=== PATIENT | female | born 1940 | race Caucasian/White ===

== ENCOUNTER 2018-10-15 14:23 | Outpatient (CLI) | payer MEDICARE | END 2018-10-15 23:59 | disposition home or self-care (01) | LOC: CVU 14:23 | PROVIDERS: ATTEND Internal Medicine Cardiovascular Disease | DX: I08.8 Other rheumatic multiple valve diseases (principal); I10 Essential (primary) hypertension; J44.9 Chronic obstructive pulmonary disease, unspecified; Z85.3 Personal history of malignant neoplasm of breast; Z85.118 Personal history of other malignant neoplasm of bronchus and lung | CPT/HCPCS: 93306 ==

== ENCOUNTER → 2019-05-15 | Outpatient (CLI) | payer MEDICARE ==
[2019-05-15 13:51] LABS: PROTHROMBIN TIME 62.2 Seconds (9.6-11.5)
[2019-05-15 13:52] LABS: INTERNATIONAL NORMALIZED RATIO 5.77 (0.93-1.1)
== END | disposition home or self-care (01) ==
LOC: CFH 10:34
PROVIDERS: ATTEND Internal Medicine Cardiovascular Disease
DX: J44.9 Chronic obstructive pulmonary disease, unspecified (principal); I42.9 Cardiomyopathy, unspecified; I48.92 Unspecified atrial flutter; D05.90 Unspecified type of carcinoma in situ of unspecified breast
CPT/HCPCS: 36415; 85610

== ENCOUNTER → 2019-05-19 | Outpatient (CLI) | payer MEDICARE ==
[2019-05-19 16:02] LABS: INTERNATIONAL NORMALIZED RATIO 2.21 (0.93-1.1); PROTHROMBIN TIME 23.6 Seconds (9.6-11.5)
== END | disposition home or self-care (01) ==
LOC: CFH 14:18
PROVIDERS: ATTEND Internal Medicine Cardiovascular Disease
DX: D05.90 Unspecified type of carcinoma in situ of unspecified breast (principal); I42.9 Cardiomyopathy, unspecified; I48.92 Unspecified atrial flutter; J44.9 Chronic obstructive pulmonary disease, unspecified
CPT/HCPCS: 36415; 85610

== ENCOUNTER → 2019-05-29 | Outpatient (CLI) | payer MEDICARE ==
[2019-05-29 15:55] LABS: INTERNATIONAL NORMALIZED RATIO 1.61 (0.93-1.1); PROTHROMBIN TIME 17.1 Seconds (9.6-11.5)
== END | disposition home or self-care (01) ==
LOC: CFH 12:35
PROVIDERS: ATTEND Internal Medicine Cardiovascular Disease
DX: I48.92 Unspecified atrial flutter (principal); I42.9 Cardiomyopathy, unspecified; D05.90 Unspecified type of carcinoma in situ of unspecified breast; J44.9 Chronic obstructive pulmonary disease, unspecified
CPT/HCPCS: 36415; 85610

== ENCOUNTER → 2019-06-03 | Outpatient (CLI) | payer MEDICARE ==
[2019-06-03 14:52] LABS: INTERNATIONAL NORMALIZED RATIO 1.58 (0.93-1.1); PROTHROMBIN TIME 16.8 Seconds (9.6-11.5)
== END | disposition home or self-care (01) ==
LOC: CFH 11:17
PROVIDERS: ATTEND Internal Medicine Cardiovascular Disease
DX: D05.90 Unspecified type of carcinoma in situ of unspecified breast (principal); I48.92 Unspecified atrial flutter; I42.9 Cardiomyopathy, unspecified; J44.9 Chronic obstructive pulmonary disease, unspecified
CPT/HCPCS: 36415; 85610

== ENCOUNTER → 2019-06-23 | Outpatient (CLI) | payer MEDICARE ==
[2019-06-23 15:50] LABS: INTERNATIONAL NORMALIZED RATIO 2.11 (0.93-1.1); PROTHROMBIN TIME 22.5 Seconds (9.6-11.5)
== END | disposition home or self-care (01) ==
LOC: CFH 13:43
PROVIDERS: ATTEND Internal Medicine Cardiovascular Disease
DX: D05.90 Unspecified type of carcinoma in situ of unspecified breast (principal); I42.9 Cardiomyopathy, unspecified; I48.92 Unspecified atrial flutter; J44.9 Chronic obstructive pulmonary disease, unspecified
CPT/HCPCS: 36415; 85610

== ENCOUNTER → 2019-08-27 | Outpatient (CLI) | payer MEDICARE ==
[2019-08-27 16:06] LABS: INTERNATIONAL NORMALIZED RATIO 1.78 (0.93-1.1)
== END | disposition home or self-care (01) ==
LOC: CFH 12:12
PROVIDERS: ATTEND Internal Medicine Cardiovascular Disease
DX: I48.92 Unspecified atrial flutter (principal); I42.9 Cardiomyopathy, unspecified; J44.9 Chronic obstructive pulmonary disease, unspecified; D05.90 Unspecified type of carcinoma in situ of unspecified breast
CPT/HCPCS: 36415; 85610

== ENCOUNTER 2020-08-30 11:44 | Emergency (ER) | payer MEDICARE, OTHER ==
[~2020-08-30] VITALS: Ht 175.3 cm; Wt 52.5 kg
[~2020-08-30 11:44] MED LIST: ACET325T26 PO; ALEN70TA77 PO; ALLO300T PO; ASCO1TAB2 PO; BECL10.6 INH; BRIN10DR EACHEYE; CALC-451 PO; CARB15DR5 EACHEYE; CHOL10003 PO; CYAN100T22 PO; DILT180C72 PO; DIPH50CA26 PO; EUCA50OI2 TP; FOLI1TAB32 PO; FURO20TA3 PO; IRON18TA PO; LATA7.5D EACHEYE; LEVO50TA5 PO; MAGN500C9 PO; NAPR220C2 PO; OXYC5TAB2 PO; OXYGEN; POTA10TA31 PO; SALI44.3 PO; SIMV10TA18 PO; WARF6TAB47 PO; [UNRECOGNIZED DRUG - OTHER] TP
[2020-08-30 11:54] VITALS: BP 128/85
--- NOTE | 2020-08-30 12:01 | NUR ---
PT BIBA FROM PCP FOR C/O SOB WITH EXERTION AND HYPOXIA AT 85%, PT STATES SHE WAS WALKING FAST TO GET TO HER APPT ON TIME, WAS ON 4L NC WITH HOME CONCENTRATOR. PT ARRIVED ON 6L O2 VIA SIMPLE FACE MASK WITH SATS AT 97%. PT DENIES ANY CP OR SOB AT THIS TIME. PLACED ON ALL MONITORS, FALL PRECAUTIONS IN PLACE, CALL LIGHT PLACED WITHIN REACH.
--- NOTE | 2020-08-30 12:55 | NUR ---
PT ROAD TESTED, C/O CP AND SOB WHILE AMBULATING ON CONCENTRATOR AT 4L, SPO2 88%.
--- NOTE | 2020-08-30 12:57 | NUR ---
REPORT GIVEN TO AMANDO FRANKS.
--- NOTE | 2020-08-30 13:19 | NUR ---
PT AMBULATED DOWN [facility] WITH HOSPITAL O2 TANK AND BACK IN BED, FOUND TO BE 93% AND QUICKLY IMPROVED TO 96% AFTER A COUPLE MINUTES OF REST. NAD NOTED. PT AND EAGER TO BE DC'ED.
== END 2020-08-30 13:46 | disposition home or self-care (01) ==
LOC: ED 13:35
DX: R06.00 Dyspnea, unspecified (principal); I50.9 Heart failure, unspecified; J43.9 Emphysema, unspecified; I48.91 Unspecified atrial fibrillation; I48.92 Unspecified atrial flutter; Z87.891 Personal history of nicotine dependence; Z85.3 Personal history of malignant neoplasm of breast; Z85.118 Personal history of other malignant neoplasm of bronchus and lung
CPT/HCPCS: 99283